=== PATIENT | female | born 1940 | race Caucasian/White ===

== ENCOUNTER 2017-07-10 14:21 | Day surgery (SDC) | payer MEDICARE, BC ==
[~2017-07-10] VITALS: Ht 152.4 cm; Wt 56.8 kg
[2017-07-10] MEDS ORDERED: AMLODOPINE (14:46)
[2017-07-10] MEDS ORDERED: COLACE (14:46)
[2017-07-10] MEDS ORDERED: ADVAIR (14:46)
[2017-07-10] MEDS ORDERED: ZETIA (14:46)
[2017-07-10] MEDS ORDERED: LIDOCAINE 2% (SDV) 5 ML INJ ONE (15:04)
[2017-07-10] MEDS ORDERED: PROPOFOL 20 ML ONE (15:04)
[2017-07-10] MEDS ORDERED: MIDAZOLAM 1 MG/ML 2 ML INJ ONE (15:04)
[2017-07-10 15:09] VITALS: BP 145/67; PULSE 71; RESP 20
--- NOTE | 2017-07-10 15:51 | OPPN ---
Date/Time of Note Date/Time of Note DATE: 07/10/17 TIME: 15:50 Operative Report Preoperative Diagnosis Change in bowel habit History of colon polyps Postoperative Diagnosis Poor prep making the exam very suboptimal and inadequate Small rectal polyp was removed Internal hemorrhoids Operation/Procedure Performed Colonoscopy and biopsy Provider: MANPREET MELCHOR MD Anesthesia Type: MAC Estimated blood loss: none Transfusion Required: no Specimens Rectal polyp Grafts/Implants: none Complications: no MANPREET MELCHOR MD Jul 10, 2017 15:51
[2017-07-10 16:20] VITALS: BP 122/69; RESP 14
--- NOTE | 2017-07-10 22:57 | GILP ---
DATE OF PROCEDURE: 07/10/2017 PROCEDURE PERFORMED: Colonoscopy and biopsy. SURGEON: Willian Rod MD PREOPERATIVE DIAGNOSIS: 1. Change in bowel habits. 2. History of colon polyp. POSTOPERATIVE DIAGNOSES: 1. Colonoscopy all the way to the cecum. 2. Poor prep making the exam suboptimal and inadequate. 3. Small rectal polyp was removed using the biopsy forceps. 4. Internal hemorrhoids. INDICATIONS FOR PROCEDURE: Ms. Jaylon Zaidi is a 76-year-old female patient who noticed change in the bowel habit. Patient had a history of colon polyps. Patient was scheduled for colonoscopy for further evaluation. The procedure and possible complications were well explained to the patient. The patient understood and consented to the procedure. DESCRIPTION OF PROCEDURE: Under influence of anesthesia, the colonoscope was carefully introduced in the rectum. Under direct vision, it was advanced all the way to the cecum. FINDINGS: Patient had poor prep with solid stool scattered all over, especially in the right colon in the cecal area making the exam inadequate and suboptimal. The patient was noted to have a small rectal polyp and it was removed using biopsy forceps. She had internal hemorrhoids. She tolerated the procedure very well, and there was no complication from the procedure. At the end of the procedure, she was awake with stable vital signs and she was discharged home in the care of her family. IMPRESSION: Please see postoperative diagnoses. PLAN: 1. Await histopathology report. 2. Patient will need repeat colonoscopy with better preparation. Dictated By: MD ISRAEL Vivas/[email or web address]/pdg /Document#: [id number]
== END 2017-07-10 17:23 | disposition home or self-care (01) ==
LOC: GIL 14:21
PROVIDERS: ATTEND Internal Medicine Gastroenterology
DX: D12.8 Benign neoplasm of rectum (principal); K64.8 Other hemorrhoids; I10 Essential (primary) hypertension; J45.909 Unspecified asthma, uncomplicated; E78.00 Pure hypercholesterolemia, unspecified; Z88.0 Allergy status to penicillin
CPT/HCPCS: 45380; 88305; J2250